=== PATIENT | male | born 1950 | race Caucasian/White ===

== ENCOUNTER 2023-09-15 04:35 | Day surgery (SDC) | payer OTHER, MEDICARE ==
[2023-08-23 11:09] VITALS: BMI 27.9
[2023-09-15 11:20] VITALS: RESP 18
[2023-09-15 13:27] VITALS: BP 114/55; PULSE 67; TEMP 98.7
== END 2023-09-15 13:28 | disposition home or self-care (01) ==
LOC: JASU-ENDO 04:35
PROVIDERS: ATTEND Internal Medicine Gastroenterology
PROC: 0DBM8ZX Excision of Descending Colon, Via Natural or Artificial Opening Endoscopic, Diagnostic (ICD-10-PCS; principal; 2023-09-15 12:00)
DX: Z12.11 Encounter for screening for malignant neoplasm of colon (principal); K57.30 Diverticulosis of large intestine without perforation or abscess without bleeding; D12.4 Benign neoplasm of descending colon; K64.8 Other hemorrhoids
CPT/HCPCS: 88305-TC